=== PATIENT | male | born 1980 | race Hispanic/Latino ===

== ENCOUNTER → 2019-08-17 | Outpatient (CLI) | payer BC ==
[~2019-08-17] MED LIST: PANTOPRAZOLE SO40 MG PO
--- NOTE | 2019-08-17 12:29 | Diagnostic Imaging Report ---
EXAM: US ABDOMEN COMPLETE DATE: 08/17/2019 8:11 AM INDICATION: Upper abdominal pain COMPARISON: None FINDINGS: The pancreas is not well-visualized secondary to prominent bowel gas. The liver is normal in size measuring 14.0 cm in length. The hepatic parenchyma is mildly increased in echogenicity diffusely. No focal hepatic abnormality is identified. The main portal vein is patent with antegrade flow and diameter of 0.9 cm, within normal limits. The gallbladder is unremarkable. There is no evidence for shadowing stones, wall thickening, or pericholecystic fluid. There is no intra or extrahepatic biliary ductal dilatation. The common bile duct measures 4 mm. Sonographic Nascimento's sign is negative. The spleen is normal in size measuring 11.4 cm in length and demonstrates an unremarkable sonographic appearance. The kidneys are normal in size measuring 10.4 centers in length on the right and 11.0 cm in length on the left with normal cortical thickness and echogenicity. There is no evidence for solid renal mass, hydronephrosis, or shadowing calculi. The visualized portions the IVC are unremarkable. The aorta is not well-visualized secondary to prominent overlying bowel gas. There is no ascites present. IMPRESSION: Mildly increased hepatic echogenicity which can be seen in the setting of mild steatosis. Otherwise, unremarkable ultrasound examination. Signed by: Dr. Oren Kennedy MD on 08/17/2019 12:26 PM
== END ==
LOC: US 07:59
PROVIDERS: ATTEND Internal Medicine Gastroenterology
DX: R10.10 Upper abdominal pain, unspecified (principal)
CPT/HCPCS: 76700

== ENCOUNTER → 2019-10-09 | Day surgery (SDC) | payer BC ==
[~2019-10-09] MED LIST changes: +FENTANYL CITRATE/PF 100MCG/2 ML INJ ONE; +LIDOCAINE HCL 2% LOCAL INJ 5 ML SDV VIAL INJ ONE; +MIDAZOLAM HCL 2 MG/2 ML VIAL ONE; +PROPOFOL IV EMULSION 10 MG/ML 20 ML VIAL ONE
--- OUTSIDE RECORDS SUMMARY | 2019-10-09 06:45 | XMS REPORT ---
Author Author [facility] Address Unknown Phone Unavailable Care Team Providers Care Field Radio Technician Name Role Phone STACEY QUINTANA Unavailable Unavailable Problems This patient has no known problems. Allergies, Adverse Reactions, Alerts This patient has no known allergies or adverse reactions. Medications This patient has no known medications. Results Test Description Test Time Test Comments Text Results Atomic Results Result Comments US ABDOMEN COMPLETE 2019-08-17 12:14:00 [place] [id number] Patient Name: GABRIELLA LOUIE MR #: [id number] : 1980 Age/Sex: 38/M Req #: [id number] Adm Physician: Ordered by: STACEY QUINTANA MD Report #: [id number] Location: Room/Bed: Procedure: [id number] US/US ABDOMEN COMPLETE Exam Date: 08/17/19 Exam Time: 0841 REPORT STATUS: Signed EXAM: US ABDOMEN COMPLETE DATE: 08/17/2019 8:11 A M INDICATION: Upper abdominal pain COMPARISON: None FINDINGS: The pancreas is not well-visualized secondary to prominent bowel gas. The liver is normal in size measuring 14.0 cm in length. The hepatic parenchyma is mildly increased in echogenicity diffusely. No focal hepatic abnormality is identified. The main portal vein is patent with antegrade flow and diameter of 0.9 cm, within normal limits. The gallbladder is unremarkable. There is no evidence for shadowing stones, wall thickening, or pericholecystic fluid. There is no intra or extrahepatic biliary ductal dilatation. The common bile duct measures 4 mm. Sonographic Nascimento's sign is negative. The spleen is normal in size measuring 11.4 cm in length and demonstrates an unremarkable sonographic appearance. The kidneys are normal in size measuring 10.4 centers in length on the right and 11.0 cm in length on the left with normal cortical thickness and echogenicity. There is no evidence for solid renal mass, hydronephrosis, or shadowing calculi. The visualized portions the IVC are unremarkable. The aorta is not well- visualized secondary to prominent overlying bowel gas. There is no ascites present. IMPRESSION: Mildly increased hepatic echogenicity which can be seen in the setting of mild steatosis. Otherwise, unremarkable ultrasound examination. Signed by: Dr. Oren Kennedy MD on 08/17/2019 12:26 PM Dictated By: OREN KENNEDY MD 1226 Transcribed By: JOSEPH on 08/17/19 1226 COPY TO: STACEY QUINTANA MD
[2019-10-09 12:00] VITALS: BP 110/71
--- NOTE | 2019-10-09 14:09 | Operative Report ---
DATE OF PROCEDURE: 10/09/2019 SURGEON: Edgar Mendoza MD PROCEDURE: EGD with biopsies. INDICATION FOR PROCEDURE: Upper abdominal pain. MEDICATIONS: The patient was done under MAC, please see anesthesiologist's note. PROCEDURE IN DETAIL: With the patient in the left lateral decubitus position, the flexible fiberoptic Olympus gastroscope was introduced into the esophagus under direct visualization without any difficulty. There was some patchy erythema noted in distal esophagus. A minute tongue of velvety red mucosa was noted to extend proximally from the GE junction and biopsies were obtained to rule out Albarado. The scope was then advanced with ease into the stomach and mucosa overlying the antrum and the body revealed some patchy erythema and moderate edema, and biopsies were obtained and sent to stain for H. pylori. Pylorus was of normal contour and shape, was intubated with ease and the scope was advanced all the way to the second portion of the duodenum. Biopsies were obtained from the proximal second portion and the duodenal bulb to rule out sprue. The scope was then withdrawn back into the stomach and retroflexed, mucosa overlying the fundus and the cardia appeared to be within normal limits. The scope was then straightened out, it was subsequently withdrawn, and the patient tolerated the procedure well. IMPRESSION: 1. Distal esophagitis. 2. Rule out Albarado esophagus. 3. Gastritis, biopsied, biopsies sent to stain for Helicobacter pylori. 4. Rule out sprue. PLAN: Follow up histology. Increase Protonix to 40 mg 1 p.o. before meals b.i.d. Edgar Mendoza MD [facility] [place] /[id number] cc: Dr. Arthur Rose
== END | disposition home or self-care (01) ==
LOC: ENDO 06:42
PROVIDERS: ATTEND Internal Medicine Gastroenterology
DX: K29.50 Unspecified chronic gastritis without bleeding (principal); K20.9 Esophagitis, unspecified; K22.8 Other specified diseases of esophagus; K21.9 Gastro-esophageal reflux disease without esophagitis; F17.210 Nicotine dependence, cigarettes, uncomplicated
CPT/HCPCS: 43239; J2001; J2250; J2704; J3010

== ENCOUNTER → 2019-11-12 | Outpatient (CLI) | payer BC ==
[~2019-11-12] MED LIST changes: +DIATRIZOATE MEGL/DIATRIZOA SOD 30 ML BTL PO ONE; -FENTANYL CITRATE/PF 100MCG/2 ML INJ ONE; +IOPAMIDOL 370 MG/ML 200 ML INFUS..BTL INJ ONE; -LIDOCAINE HCL 2% LOCAL INJ 5 ML SDV VIAL INJ ONE; -MIDAZOLAM HCL 2 MG/2 ML VIAL ONE; -PROPOFOL IV EMULSION 10 MG/ML 20 ML VIAL ONE; +SODIUM CHLORIDE 0.9% 50ML 50 ML ONE
--- NOTE | 2019-11-12 11:59 | Diagnostic Imaging Report ---
EXAMINATION: CT of the abdomen and pelvis with contrast. TECHNIQUE: Spiral CT images of the abdomen and pelvis were performed from the lung bases to the lesser trochanters after the intravenous administration of 100 cc of Isovue 370. Coronal and sagittal reformatted images were obtained. COMPARISON: Abdominal ultrasound 08/17/2019 CLINICAL HISTORY:Upper abdominal pain DISCUSSION: ABDOMEN/PELVIS: LOWER THORAX:Subsegmental atelectasis in the dependent lower lobes. HEPATOBILIARY: Hepatic parenchyma is diffusely hypoattenuating relative to the spleen, compatible with steatosis. No focal hepatic lesion or intrahepatic biliary ductal dilatation. The gallbladder is unremarkable. SPLEEN: No splenomegaly or focal splenic lesion. PANCREAS: No focal masses or ductal dilatation. ADRENALS: 1.5 cm left adrenal nodule, average internal attenuation 75 Hounsfield units. No right adrenal nodule. KIDNEYS/URETERS: 1.3 cm hypoattenuating lesion in the upper pole of the left kidney has average internal attenuation approximately 30 Hounsfield units. No additional focal renal lesion. No hydronephrosis or calculus. PELVIC ORGANS/BLADDER: The urinary bladder, prostate, and seminal vesicles are unremarkable. PERITONEUM/RETROPERITONEUM: No ascites or pneumoperitoneum. LYMPH NODES: No pelvic sidewall, retroperitoneal, or mesenteric lymphadenopathy. VESSELS: Abdominal aorta, major branch vessels, and iliac arterial systems are patent without aneurysmal dilatation. Variant hepatic arterial anatomy with the common hepatic artery replaced to the SMA. Portal and splenic veins are patent. GI TRACT: Large bowel shows no distention or wall thickening. The distal colon is collapsed and poorly evaluated. Normal appendix. No small bowel dilatation to suggest obstruction. BONES AND SOFT TISSUE: No osseous destructive lesions. No focal soft tissue abnormalities. IMPRESSION: No acute intra-abdominal or pelvic CT abnormalities. Left adrenal nodule is indeterminate on this single phase examination, though statistically likely to represent an adenoma in the absence of known primary malignancy. Definitive characterization with CT or MRI of the abdomen with and without contrast (adrenal mass protocol) is suggested. 1.4 cm left renal lesion has slightly greater than expected attenuation for a simple cyst, which may reflect proteinaceous contents. This lesion may also be definitively characterized by above recommended multiphase CT or MRI of the abdomen. Signed by: Dr. Don Brown M.D. on 11/12/2019 11:56 AM
== END ==
LOC: CT 10:13
PROVIDERS: ATTEND Internal Medicine Gastroenterology
DX: R10.10 Upper abdominal pain, unspecified (principal)
CPT/HCPCS: 74177; Q9967

== ENCOUNTER → 2019-12-10 | Outpatient (CLI) | payer BC ==
[~2019-12-10] MED LIST changes: -DIATRIZOATE MEGL/DIATRIZOA SOD 30 ML BTL PO ONE; +GADOBENATE DIMEGLUMINE 1 ML IV ONE; -IOPAMIDOL 370 MG/ML 200 ML INFUS..BTL INJ ONE; +SODIUM CHLORIDE 0.9% 100 ML ONE; -SODIUM CHLORIDE 0.9% 50ML 50 ML ONE
--- NOTE | 2019-12-10 10:47 | Diagnostic Imaging Report ---
MRI abdomen without with contrast HISTORY: Abdominal pain, left renal lesion on prior CT examination Comparison: CT from 11/12/2019 Technique: Multiplanar and multisequence MRI images of the abdomen were obtained before and after the administration of 16 cc of MultiHance intravenous contrast. FINDINGS: The visualized intrathoracic contents are grossly unremarkable. The liver is normal in size and attenuation without evidence for enhancing lesion. The gallbladder is unremarkable. There is no biliary ductal dilatation. The stomach, spleen, pancreas, and right adrenal gland are unremarkable. There is a 1.5 cm left adrenal nodule which demonstrates dropout of signal on opposed phase imaging which is compatible with a benign adenoma. Additionally, the adenoma is unchanged in size from prior CT examinations dating back to 2013. The kidneys are normal in size and location and enhance symmetrically. There is a 1.4 x 1.5 cm T2 hyperintense lesion identified within the superior pole of the left kidney. This lesion demonstrates no enhancement and is compatible with a simple cyst and is also unchanged in size from prior CT examinations dating back to 2013. There are additional subcentimeter T2 hyperintense, nonenhancing lesions identified bilaterally which are too small to definitively characterize but likely represent small cysts. There is no evidence for solid or enhancing renal mass. There is no evidence for hydronephrosis. The abdominal aorta is normal course and caliber. Incidentally noted is a replaced common hepatic artery arising off the SMA. Patent portal venous system. The visualized loops of bowel demonstrate no evidence of obstruction or inflammation. No free fluid or lymphadenopathy is visualized within the abdomen. Impression: 1.5 cm benign left adrenal adenoma, unchanged in size from prior examinations dating back to 2013. No follow-up or further imaging is warranted. 1.5 cm simple left renal cyst. No evidence for solid/enhancing renal mass or hydronephrosis. Signed by: Dr. Oren Kennedy MD on 12/10/2019 10:43 AM
== END ==
LOC: MRI 07:54
PROVIDERS: ATTEND Internal Medicine Gastroenterology
DX: R10.10 Upper abdominal pain, unspecified (principal); N28.1 Cyst of kidney, acquired
CPT/HCPCS: 74183; A9577; J7050

== ENCOUNTER → 2022-01-25 | Day surgery (SDC) | payer BC ==
[~2022-01-25] MED LIST changes: +FENTANYL CITRATE/PF 100MCG/2 ML INJ ONE; -GADOBENATE DIMEGLUMINE 1 ML IV ONE; +HYOSCYAMINE SULFATE 0.5 MG/ML INJ ONE; +LIDOCAINE HCL 2% LOCAL INJ 5 ML SDV VIAL INJ ONE; +METOCLOPRAMIDE HCL 10 MG/2ML VIAL ONE; +MIDAZOLAM HCL 2 MG/2 ML VIAL ONE; +PROPOFOL IV EMULSION 10 MG/ML 20 ML VIAL ONE; -SODIUM CHLORIDE 0.9% 100 ML ONE
[2022-01-25 12:05] VITALS: BP 126/90
== END | disposition home or self-care (01) ==
LOC: OR 08:08
PROVIDERS: ATTEND Internal Medicine Gastroenterology
DX: K22.70 Barrett's esophagus without dysplasia (principal); K62.1 Rectal polyp; K29.50 Unspecified chronic gastritis without bleeding; K52.9 Noninfective gastroenteritis and colitis, unspecified; K20.90 Esophagitis, unspecified without bleeding; K62.89 Other specified diseases of anus and rectum; K64.8 Other hemorrhoids; Z71.3 Dietary counseling and surveillance; R00.1 Bradycardia, unspecified; G89.29 Other chronic pain; F17.210 Nicotine dependence, cigarettes, uncomplicated; Z71.6 Tobacco abuse counseling; Z01.810 Encounter for preprocedural cardiovascular examination; Z01.812 Encounter for preprocedural laboratory examination; Z20.822 Contact with and (suspected) exposure to COVID-19; Z68.27 Body mass index [BMI] 27.0-27.9, adult
CPT/HCPCS: 43239; 45380; 93005; C9113; J1980; J2001; J2250; J2704; J2765; J3010; U0002; 45378

== ENCOUNTER → 2022-03-15 | Outpatient (CLI) | payer BC ==
[~2022-03-15] MED LIST changes: -FENTANYL CITRATE/PF 100MCG/2 ML INJ ONE; -HYOSCYAMINE SULFATE 0.5 MG/ML INJ ONE; -LIDOCAINE HCL 2% LOCAL INJ 5 ML SDV VIAL INJ ONE; -METOCLOPRAMIDE HCL 10 MG/2ML VIAL ONE; -MIDAZOLAM HCL 2 MG/2 ML VIAL ONE; -PROPOFOL IV EMULSION 10 MG/ML 20 ML VIAL ONE
== END ==
LOC: NM 06:59
PROVIDERS: ATTEND Internal Medicine Gastroenterology
DX: R10.11 Right upper quadrant pain (principal)
CPT/HCPCS: 78227; A9537

== ENCOUNTER → 2024-10-29 | Day surgery (SDC) | payer BC ==
[~2024-10-29] MED LIST changes: +FENTANYL CITRATE/PF 100MCG/2 ML INJ ONE; +LIDOCAINE HCL 2% LOCAL INJ 5 ML SDV VIAL INJ ONE; +MIDAZOLAM HCL 2 MG/2 ML VIAL ONE; +PROPOFOL IV EMULSION 10 MG/ML 20 ML VIAL ONE
[2024-10-29] MEDS: LACTATED RINGER'S 1,000 ML ONE (06:52)
[2024-10-29 07:53] VITALS: TEMP 97.4
[2024-10-29 08:20] VITALS: BP 107/66; PULSE 58; RESP 16; O2SAT 98
== END | disposition home or self-care (01) ==
LOC: OR 06:20
PROVIDERS: ATTEND Internal Medicine Gastroenterology
DX: K29.50 Unspecified chronic gastritis without bleeding (principal); K22.70 Barrett's esophagus without dysplasia; K21.9 Gastro-esophageal reflux disease without esophagitis; R00.1 Bradycardia, unspecified; Z01.810 Encounter for preprocedural cardiovascular examination
CPT/HCPCS: 43239; 93005; J2003; J2250; J2470; J2704; J3010; J7121